=== PATIENT | female | born 1975 | race Caucasian/White ===

== ENCOUNTER 2025-03-30 10:11 | Emergency (ER) | payer OTHER, SELFPAY ==
--- NOTE | ~2025-03-30 | CT_ITS ---
EXAMINATION: CT abdomen pelvis w con DATE: 03/30/2025 11:18 INDICATION: Right lower quadrant abdominal pain TECHNIQUE: Computed tomography (CT) of the abdomen and pelvis was performed with 100 mL Omnipaque-350 intravenous contrast. Automated exposure control and iterative reconstruction technique were employed. The dose-length product was 663.75 mGy-cm. COMPARISON: None FINDINGS: Mild discoid atelectasis at the lingula. Heart size is normal. No pericardial or pleural effusion. Postoperative change of prior gastric bypass procedure. Liver, gallbladder, spleen, pancreas, bilateral adrenal glands and kidneys are normal. There is prominent inflammatory stranding surrounding the fluid-filled appendix which is dilated to 1.4 cm consistent with acute appendicitis. Remainder the bowels are normal with no obstruction. Partially decompressed bladder, anteverted uterus and bilateral adnexa are unremarkable. No abscess or free intraperitoneal gas or fluid. No pathologically enlarged abdominal or pelvic lymphadenopathy. Moderate lower thoracic, mild to moderate lumbosacral and mild lumbar spondylosis. IMPRESSION: 1. Radiographic uncomplicated acute appendicitis. Findings were discussed with Kyler Yan, the nurse caring for the patient, at 11:52 AM. Reviewed, dictated and finalized at location A. [facility]
--- NOTE | 2025-03-30 10:15 | ED.ABDPAIN ---
HPI - Abdominal Pain General Chief Complaint: Abdominal Pain Stated Complaint: abd pain Time Seen by Provider: 03/30/25 10:15 Source: patient and family Mode of arrival: ambulatory Limitations: no limitations History of Present Illness HPI narrative: 50 years old presents with right lower quadrant pain associated with nausea vomiting and dry heaves started early this morning, no radiation, dull aching, no aggravating or relieving factors, patient denies any fever or chills diarrhea or constipation. History of gastric bypass, kidney stone. Patient does not smoke or use drugs, drink alcohol occasionally. Came from home with her by private car. Related Data Home Medications ?Medication ?Instructions ?Recorded ?Confirmed ?Last Taken ?Type metformin 500 mg tablet,extended 500 mg PO DAILY 03/30/25 Unknown History release 24 hr valacyclovir 1 gram tablet 1,000 mg PO DAILY 03/30/25 Unknown History Allergies Allergy/AdvReac Type Severity Reaction Status Date / Time ciprofloxacin (From Cipro) Allergy Intermediate Diarrhea Verified 03/30/25 10:51 empagliflozin (From Allergy Mild yeast Verified 03/30/25 10:51 Jardiance) Review of Systems Review of Systems: All systems reviewed & are unremarkable except as noted in HPI and below Exam Narrative: General appearance: Well-developed, well-nourished Skin: Normal color Head: Normocephalic, nontraumatic Eyes: Clear conjunctiva ENT: Oropharynx normal, ears normal, nose normal Neck: Supple, nontender Chest and respiratory: Airway patent, no respiratory distress, no accessory muscle use Heart: Regular rate/rhythm Abdomen: Soft, nontender, no organomegaly, quiet bowel sounds Vascular: Normal peripheral pulses, normal capillary refill. Musculoskeletal: Normal range of motion, nontender back Neurologic: Alert and oriented ?3, [employer] is normal as tested, no gross motor deficit Course Consultations Consultation #1: DR ALONSO Date: 03/30/25 Vital Signs Vital signs: Vital Signs Temperature 36.4 C 03/30/25 10:17 Pulse Rate 77 03/30/25 10:17 Respiratory Rate 19 03/30/25 10:17 Blood Pressure 135/81 03/30/25 10:17 Pulse Oximetry 98 03/30/25 10:17 Oxygen Delivery Room Air 03/30/25 10:17 Temperature 36.7 C 03/30/25 12:01 Pulse Rate 67 03/30/25 12:01 Respiratory Rate 16 03/30/25 12:01 Blood Pressure 129/66 03/30/25 12:01 Pulse Oximetry 95 03/30/25 12:01 Oxygen Delivery Room Air 03/30/25 12:01 MDM - Abdominal Pain MDM Narrative Medical decision making narrative: Right lower quadrant pain with nausea and vomiting, on dry heave Vital signs are stable Physical examination consistent with pain at the right abdomen with slight guarding, no rebound Differential diagnosis include appendicitis cholecystitis kidney stone constipation colitis diverticulitis urinary tract infection Blood workup today includes CBC CMP lipase lactic acid showed WBC 17.5 otherwise within normal limit Urinalysis showed no acute abnormalities CT abdomen and pelvis with IV contrast showed acute appendicitis Transferred to [facility], accepted by Dr. Alonso IN THE ED PATIENT RECEIVED NORMAL SALINE WIDE OPEN 1 L THEN 250 ML/HOUR, DILAUDID 0.5 MG IV ONCE, ZOFRAN 4 MG IV ONCE, ZOSYN 3.375 IV ONCE Differential Diagnosis Differential diagnosis: Likely other (As above) Medical Records Attestation: I reviewed the patient's medical records. Lab Data Attestation: I reviewed the patient's lab results. 03/30/25 10:31 03/30/25 10:31 Labs: Lab Results 03/30/25 03/30/25 Range/Units 10:31 10:55 WBC 17.5 H (4.8-10.8) K/mm3 RBC 4.93 (4.20-5.40) M/mm3 Hgb 14.7 (12.0-15.0) g/dL Hct 45.3 (35.0-49.0) % MCV 91.9 (78.0-102.0) fL MCH 29.8 (27.0-31.0) pg MCHC 32.5 (32-36) g/dL RDW 12.4 (11.6-14.4) % Plt Count 319 (150-420) K/mm3 MPV 10.1 (9.2-11.8) fl Immature Gran % (Auto) 0.6 H (0.0-0.0) % Neut % (Auto) 83.4 H (50.0-70.0) % Lymph % (Auto) 9.2 L (18.0-42.0) % [place] % (Auto) 5.8 (2.0-11.0) % Eos % (Auto) 0.5 L (1.0-6.0) % Baso % (Auto) 0.5 (0.0-1.0) % Lymph # (Auto) 1.61 (1.10-4.50) K/mm3 [place] # (Auto) 1.01 H (0.10-0.90) K/mm3 Eos # (Auto) 0.09 (0.02-0.50) K/mm3 Baso # (Auto) 0.08 (0.00-0.10) K/mm3 Abs Immat Gran (auto) 0.10 H (0.00-0.00) K/mm3 Absolute Neuts (auto) 14.56 H (1.70-7.20) K/mm3 Absolute Nucleated RBC 0.00 (0.00-0.00) K/mm3 Nucleated RBC % 0.0 (0-0.0) % Sodium 142 (137-145) mmol/L Potassium 4.0 (3.4-5.0) mmol/L Chloride 104 (98-107) mmol/L Carbon Dioxide 28 (22-30) mmol/L Anion Gap 10 (4-12) mmol/L BUN 12 (7-17) mg/dL Creatinine 0.63 L (0.7-1.0) mg/dL Estim Creat Clear Calc 97 ml/min Estimated GFR > 60 (59 - ) Glucose 154 H (65-110) mg/dL Calculated Osmolality 296 H (285-295) mOsm/kg Lactic Acid 1.8 (0.7-2.0) mmol/L Calcium 8.8 (8.4-10.2) mg/dL Total Bilirubin 0.4 (0.2-1.3) mg/dL AST 35 (14-36) U/L ALT 28 (6-35) U/L Alkaline Phosphatase 95 (38-126) U/L Total Protein 7.7 (6.3-8.2) g/dL Albumin 4.5 (3.5-5.1) g/dL Lipase 93 (23-300) U/L Urine Color Light yellow (Yellow) Urine Appearance Clear (Clear) Urine pH 7.0 (5.0-8.0) Ur Specific [place] 1.010 (1.010-1.020) Urine Protein Trace H (Negative) Urine Glucose (UA) Negative (Negative) Urine Ketones Negative (Negative) Ur Blood (Man) Negative (Negative) Urine Nitrate Negative (Negative) Urine Bilirubin Negative (Negative) Urine Urobilinogen 0.2 (0.2-1.0) mg/dL Leukocyte Esterase Rfl 1+ H (Negative) SADI/UL Urine RBC 0-2 (0-2) /hpf Urine WBC 10-15 H (0-3) /hpf Imaging Data Radiologist's impression: ITS Impressions Abdomen/Pelvis CT 03/30/25 11:38 IMPRESSION: 1. Radiographic uncomplicated acute appendicitis. Findings were discussed with Kyler Yan, the nurse caring for the patient, at 11:52 AM. Critical Care Time Critical Care Time Critical Care Time: No Discharge Plan Discharge Clinical Impression: Acute appendicitis Patient Disposition: Acute Care Hospital [facility] Condition: Stable Additional Instructions: Transferred to [facility] Patient Language: Belarusian Prescriptions: No Action valacyclovir 1 gram tablet 1,000 mg PO DAILY metformin 500 mg tablet extended release 24 hr 500 mg PO DAILY Follow-up/Referrals: UNKNOWN,DOCTOR [Non-Staff]
[2025-03-30 10:17] VITALS: BP 135/81; PULSE 77; RESP 19; TEMP 36.4; O2SAT 98
[2025-03-30 10:35] LABS: Hematocrit 45.3 % (35.0-49.0); Hemoglobin 14.7 g/dL (12.0-15.0); Immature Granulocyte Percent A 0.6 % (0.0-0.0); Lymphocytes Absolute Auto 1.61 K/mm3 (1.10-4.50); Mean Corpuscular HGB Conc 32.5 g/dL (32-36); Mean Corpuscular Hemoglobin 29.8 pg (27.0-31.0); Mean Corpuscular Volume 91.9 fL (78.0-102.0); Nucleated Red Blood Cells Absolute Auto 0.00 K/mm3 (0.00-0.00); Nucleated Red Blood Cells Perc 0.0 % (0-0.0); Platelet Count Result 319 K/mm3 (150-420); Red Blood Count 4.93 M/mm3 (4.20-5.40); White Blood Count 17.5 K/mm3 (4.8-10.8)
[2025-03-30] MEDS: Please add drug allergy info to patient profile. 1 EACH XX (10:43)
[2025-03-30] MEDS: SODIUM CHLORIDE 0.9% IV 1,000 ML 999 ML IV CONT (10:44)
[2025-03-30] MEDS: TAMSULOSIN HCL 0.4 MG CAPSULE PO (10:45)
[2025-03-30] MEDS: HYDROmorphone HCL INJ (*CRX) 2 MG/ML VIAL 0.5 MG IV PUSH (10:45)
[2025-03-30] MEDS: ONDANSETRON INJ 4 MG/2 ML VIAL 8 MG IV PUSH (10:46)
[2025-03-30 10:47] LABS: Alanine Aminotransferase 28 U/L (6-35); Albumin Level 4.5 g/dL (3.5-5.1); Alkaline Phosphatase 95 U/L (38-126); Anion Gap 10 mmol/L (4-12); Aspartate Amino Transferase 35 U/L (14-36); Bilirubin,Total 0.4 mg/dL (0.2-1.3); Blood Urea Nitrogen 12 mg/dL (7-17); Calcium 8.8 mg/dL (8.4-10.2); Carbon Dioxide 28 mmol/L (22-30); Chloride 104 mmol/L (98-107); Estimated CRCL calculation 97 ml/min; Estimated Glomerular Filt Rate > 60; Glucose 154 mg/dL (65-110); Lipase 93 U/L (23-300); Osmolality Calculated 296 mOsm/kg (285-295); Potassium 4.0 mmol/L (3.4-5.0); Sodium 142 mmol/L (137-145); Total Protein 7.7 g/dL (6.3-8.2)
[2025-03-30 11:09] LABS: Add Urine Microscopic? YES; Appearance Urine Clear (Clear); Glucose Urine UA Negative (Negative); Leukocyte Esterase Ur 1+ LEU/UL (Negative); Nitrate Urine Negative (Negative); Specific Grav Ur 1.010 (1.010-1.020)
--- OUTSIDE RECORDS SUMMARY | 2025-03-30 11:51 | XMS_ITS | Clinical Summary ---
Author Organization [facility] Address [address] [place] [address] Phone Care Team Providers Care Lead Business Analyst Name Role Phone Provider, None Primary Care Provider Unavailabl e Allergies Active Allergy Reactions Criticality Noted Date Comments Ciprofloxacin Other (see Comments) 10/08/2014 Empagliflozin Rash 11/12/2024 Recurrent infections Guaifenesin Hives,Other (see Comments) 10/08/2014 Hypertension Medications valACYclovir (VALTREX) 1 GM Tablet Take 500 mg by mouth daily. 05/29/2022 Active rizatriptan (MAXALT-TAG PRESS OPERATOR) 10 MG TABLET DISPERSIBLE Take 10 mg by mouth once as needed for Migraine. Active calcium carbonate (Tums) 500 MG Chewable Tablet Take 2 Tablets by mouth daily. Active Multiple Vitamins-Calcium (Essential One Daily Multivit) Tablet Take by mouth daily. Active Social History Tobacco Use Types Packs/Day Years Used Date Smoking Tobacco: Never Smokeless Tobacco: Never Tobacco Cessation:Counseling Given: Not Answered Comments No Sex and Gender Information Value Date Recorded Sex Assigned at Not on file Legal Sex Female 2:14 PM CDT Gender Identity Not on file Sexual Orientation Not on file Last Filed Vital Signs Vital Sign Reading Time Taken Comments Blood Pressure 144/86 11/12/2024 1:21 PM CDT Pulse - - Temperature - - Respiratory Rate - - Oxygen Saturation - - Inhaled Oxygen Concentration - - Weight 93.2 kg (205 lb 6.4 oz) 11/12/2024 1:21 P M CDT Height 158.8 cm (5' 2.5) 11/12/2024 1:21 PM CDT Body Mass Index 36.97 11/12/2024 1:21 PM CDT Plan of Treatment Upcoming Encounters Date Type Department Care Team (Late st Contact Info) Description 12/08/2025 2:30 PM CDT Office Visit [address] [place] [address] Khai Fuentes MD [address] [place] [address] [place] [address] Health Maintenance Due Date Last Done Comments Hepatitis C Virus (HCV) Screening 1975 TdaP Immunization 1975 Hepatitis B Immunization (1 of 3 - 19+ 3-dose series) 1994 Cologuard 2020 Colonoscopy 2020 Colorectal Cancer Screening 2020 Immunochemical Fecal Occult Blood 2020 Influenza Immunization (#1) 2025 SARS-COV-2 Immunization (1 - season) 2025 Pneumococcal Immunization (50+ years) (1 of 1 - PCV) 2025 Zoster Immunization (1 of 2) 2025 Mammogram 11/12/2025 11/12/2024, 10/06, 10/24/2022, Additional history exists Pap Smear 10/30/2026 10/31/2023 Cervical Cancer Screening (CCS) 11/12/2029 HPV/Cotest 11/12/2029 11/12/2024 Respiratory Syncytial Virus (RSV) Immunization (Adult) (1 - 1-dose 75+ series) 2050 Discussion re Starting/Frequency of Mammograms Discontinued 11/12/2024, 10/31/2023, 10/24/2022, Additional history exists Human Papillomavirus (HPV) Immunization Aged Out No longer eligible based on patient's age to complete this topic Meningococcal Immunization (ACWY) Aged Out No longer eligible based on patient's age to complete this topic Rotavirus Immunization Aged Out No lo nger eligible based on patient's age to complete this topic Procedures Procedure Name Priority Date/Time Associated Diagnosis Comments SOHAN SCREENING BILATERAL DIGITAL W CAD W DALTON Routine 11/12/2024 3:05 PM CDT Visit for screening mammogram THINPREP TIS AND HPV MRNA E6/E7, [facility] [id number] Routine 11/12/2024 2:19 PM CDT Encounter for gynecological examination (general) (routine) with abnormal findings THIN PREP PAP SMEAR,EXT UPH,[id number] Routine 10/31/2023 12:00 AM CDT from Last 3 Months or Most Recently Relevant to Health Maintenance Results * SOHAN SCREENING BILATERAL DIGITAL W CAD W DALTON (11/12/2024 3:05 PM CDT) Anatomical Region Laterality Modality breast Bilateral Mammography 11/13/2024 10:2 3 AM CDT Impressions 11/13/2024 10:25 AM CDT IMPRESSION: BIRADS 2 - Benign findings. Recommend continued annual screening mammography. On the basis of the Tyrer-Cuzick risk model, this patient has a life time risk of breast cancer of 11.6%. Patient is considered to have a low lifetime risk of developing breast cancer. <15% Narrative 11/13/2024 10:25 AM CDT HISTORY: Encounter for screening mammogram for malignant neoplasm of breast TECHNIQUE: Bilateral screening tomosynthesis mammography. Films were reviewed by CAD. COMPARISON: Prior mammograms FINDINGS: There are scattered areas of fibroglandular density. No suspicious mass, calcifications, architectural distortion or asymmetry is present. Benign breast calcifications are present bilaterally. Procedure Note Jean Claude Angelo, DO - 11/13/2024 HISTORY: Encounter for screening mammogram for malignant neoplasm ofbreast TECHNIQUE: Bilateral screening tomosynthesis mammography. Films werereviewed by CAD. COMPARISON: Prior mammograms FINDINGS: There are scattered areas of fibroglandular density. Nosuspicious mass, calcifications, architectural distortion or asymmetry is present.Benign breast calcifications are present bilaterally. IMPRESSION: BIRADS 2 - Benign findings. Recommend continued annual screening mammography. On the basis of the Tyrer-Cuzick risk model, this patient has a life timerisk of breast cancer of 11.6%. Patient is considered to have a low lifetime risk of developing breastcancer. <15% Khai Fuentes MD IMG MAMMO ORDERABLES Final Res ult * THINPREP TIS AND HPV MRNA E6/E7, [facility] [id number] (11/12/2024 2:19 PM CDT) 93532, REPORT STATUS, [facility] DNR 11/20/2024 9:50 AM CDT [facility] 10874, CLINICAL INFORMATION, [facility] SEE COMMENT 11/20/2024 9:50 AM CDT [facility] Comment: Intrauterine contraceptive device ABLATON 86946, LMP, [facility] SEE COMMENT 2024 9:50 AM CDT [facility] Comment:[id number], PREV. PAP, [facility] SEE COMMENT 11/20/2024 9:50 AM CDT [facility] Comment:[id number], PREV. BX, [facility] SEE COMMENT 11/20/2024 9:50 AM CDT [facility] Comment:[id number], SOURCE, [facility] SEE COMMENT 11/20/2024 9:50 AM CDT [facility] Comment:Vagina, Cervix, Endo cervix 18105, STATEMENT OF ADEQUACY, [facility] SEE COMMENT 11/20/2024 9:50 AM CDT [facility] Comment: Satisfactory for evaluation. Endocervical/transformation zone component present. 02245, GENERAL CATEGORIZATION, [facility] DNR 11/20/2024 9:50 AM CDT [facility] 82310, INTERPRETATION/RES ULT, [facility] SEE COMMENT 11/20/2024 9:50 AM CDT [facility] Comment: Cytology Results: Negative for intraepithelial lesion or malignancy. 34085, INFECTION, [facility] DNR 11/20/2024 9:50 AM CDT [facility] 09709, COMMENT, [facility] SEE COMMENT 11/20/2024 9:50 AM CDT [facility] Comment: This Pap test has been evaluated with the ThinPrep(R) Imaging System. 01705, FIRE PATROLLER, [facility] SEE COMMENT 11/20/2024 9:50 AM CDT [facility] Comment: ABC, CT(ASCP) CT Screening Location: [place] [address] [place] [address] CLIA: [id number] Slide preparation performed at: [facility], [address] [place] [address], [address] CLIA: [id number], REVIEW FIRE PATROLLER, MIRELLA SEE COMMENT 11/20/2024 9:50 AM CDT [facility] Comment: BKA, CT(ASCP) CT Screening Location: [address] [place] [address] CLIA: [id number] Slide preparation performed at: [facility], [address] [place] [address], [address] CLIA: [id number], PATHOLOGIST, MIRELLA DNR 11/20/2024 9:50 AM CDT [facility] 66349, ALWAYS MESSAGE, MIRELLA SEE COMMENT 11/20/2024 9:50 AM CDT [facility] Comment: EXPLANATORY NOTE: The Pap is a screening test for cervical cancer. It is not a diagnostic test and is subject to false negative and false positive results. It is most reliable when a satisfactory sample, regularly obtained, is submitted with relevant clinical findings and history, and when the Pap result is evaluated along with historic and current clinical information. 76057, HPV MRNA E6/E7, [facility] Not Detected Not Detected 11/20/2024 9:50 AM CDT [facility] Comment: Methodology: Net Developer Software Engineer C-Mediated Amplification This assay detects E6/E7 viral messenger RNA (mRNA) from 14 high-risk HPV types (16,18,31,33,35,39,45,51,52,56,58,59,66,68). Cervical sources are required for HPV testing. If a vaginal source from a patient who has had a total hysterectomy with removal of cervix was submitted, please contact the testing laboratory for alternative testing options. For additional information, please refer to http://education.Cycle Money/faq/BRW128z4 (This link if provided for information/ educational purposes only.) Other Non-Phlebotomy Collection / Unknown 11/12/2024 2:19 PM CDT 11/12/2024 2:19 PM CDT Narrative [facility] - 11/20/2024 9:50 AM CDT Performing Organization Information: [place] [address] [place] [address] Jay Jay Ann [facility] [address] [place], [place] [address] Josefa [facility] Khai Fuentes MD LAB SEND OUTS Final Result [facility] [place] [address] [address] [facility] [place] [address], [place] [phone] * THIN PREP PAP SMEAR,EXT UP,[id number] (10/31/2023 12:00 AM CDT) Historical Provider PATHOLOGY/CYTOLOGY ORDERA BLES Final Result from Last 3 Months or Most Recently Relevant to Health Maintenance Insurance [employer] SO Care Teams Lead Business Analyst Relationship Specialty Start Date End Date Provider, None [place] PCP - General 10/23/24
[2025-03-30 12:01] VITALS: BP 129/66; PULSE 67; RESP 16; TEMP 36.7; O2SAT 95
[2025-03-30] MEDS: PIPERACILLIN/TAZOBACTAM SOD 3.375 GM in SODIUM CHLORIDE 0.9% IV 50 ML 100 ML IVPB (12:03)
--- NOTE | 2025-03-30 12:17 | PC.NURSE ---
REPORT FROM RADIOLOGIST DR ELGIN MAURER PT HAS ACUTE appendicitis
--- OUTSIDE RECORDS SUMMARY | 2025-03-30 12:43 | XMS_ITS | Clinical Summary ---
Author Organization [facility] Address [address] [place] [address] Phone Care Team Providers Care Calculator Operator Name Role Phone Provider, None Primary Care Provider Unavailabl e Allergies Active Allergy Reactions Criticality Noted Date Comments Ciprofloxacin Other (see Comments) 10/08/2014 Empagliflozin Rash 11/12/2024 Recurrent infections Guaifenesin Hives,Other (see Comments) 10/08/2014 Hypertension Medications valACYclovir (VALTREX) 1 GM Tablet Take 500 mg by mouth daily. 05/29/2022 Active rizatriptan (MAXALT-HASH SLINGER) 10 MG TABLET DISPERSIBLE Take 10 mg [...] Description 12/08/2025 2:30 PM CDT Office Visit [address] [place] [address] Khai Fuentes MD [address] [place] [address] [place] [address] Health Maintenance Due Date [...] THINPREP TIS AND HPV MRNA E6/E7, [facility] [id number] Routine 11/12/2024 2:19 PM CDT Encounter for gynecological examination (general) (routine) with abnormal findings THIN PREP PAP SMEAR,EXT UPH,[id number] Routine 10/31/2023 12:00 AM CDT from Last [...] THINPREP TIS AND HPV MRNA E6/E7, [facility] 79918 (11/12/2024 2:19 PM CDT) 55470, REPORT STATUS, [facility] DNR 11/20/2024 9:50 AM CDT [facility] 42768, CLINICAL INFORMATION, [facility] SEE COMMENT 11/20/2024 9:50 AM CDT [facility] Comment: Intrauterine contraceptive device ABLATON 97075, LMP, [facility] SEE COMMENT 2024 9:50 AM CDT [facility] Comment:[id number], PREV. PAP, [facility] SEE COMMENT 11/20/2024 9:50 AM CDT [facility] Comment:[id number], PREV. BX, [facility] SEE COMMENT 11/20/2024 9:50 AM CDT [facility] Comment:[id number], SOURCE, [facility] SEE COMMENT 11/20/2024 9:50 AM CDT [facility] Comment:Vagina, Cervix, Endo cervix 88160, STATEMENT OF ADEQUACY, [facility] SEE COMMENT 11/20/2024 9:50 AM CDT [facility] Comment: Satisfactory for evaluation. Endocervical/transformation zone component present. 23392, GENERAL CATEGORIZATION, [facility] DNR 11/20/2024 9:50 AM CDT [facility] 94422, INTERPRETATION/RES ULT, [facility] SEE COMMENT 11/20/2024 9:50 AM CDT [facility] Comment: Cytology Results: Negative for intraepithelial lesion or malignancy. 04067, INFECTION, [facility] DNR 11/20/2024 9:50 AM CDT [facility] 83872, COMMENT, [facility] SEE COMMENT 11/20/2024 9:50 AM CDT [facility] Comment: This Pap test has been evaluated with the ThinPrep(R) Imaging System. 51698, REHABILITATION SERVICES DIRECTOR, [facility] SEE COMMENT 11/20/2024 9:50 AM CDT [facility] Comment: ABC, CT(ASCP) CT Screening Location: [place] [address] [place] [address] CLIA: [id number] Slide preparation performed at: [facility], [address] [place] [address], [address] CLIA: [id number], REVIEW REHABILITATION SERVICES DIRECTOR, MIRELLA SEE COMMENT 11/20/2024 9:50 AM CDT [facility] Comment: BKA, CT(ASCP) CT Screening Location: [address] [place] [address] CLIA: [id number] Slide preparation performed at: [facility], [address] [place] [address], [address] CLIA: [id number], PATHOLOGIST, MIRELLA DNR 11/20/2024 9:50 AM CDT [facility] 72[address], ALWAYS MESSAGE, MIRELLA SEE COMMENT 11/20/2024 9:50 AM CDT [facility] Comment: EXPLANATORY NOTE: The Pap is a screening test for cervical cancer. It is not a diagnostic test and is subject to false negative and false positive results. It is most reliable when a satisfactory sample, regularly obtained, is submitted with relevant clinical findings and history, and when the Pap result is evaluated along with historic and current clinical information. 77758, HPV MRNA E6/E7, [facility] Not Detected Not Detected 11/20/2024 9:50 AM CDT [facility] Comment: Methodology: Service Counter Cashier-Mediated Amplification This assay detects E6/E7 viral messenger RNA (mRNA) from 14 high-risk HPV types (16,18,31,33,35,39,45,51,52,56,58,59,66,68). Cervical sources are required for HPV testing. If a vaginal source from a patient who has had a total hysterectomy with removal of cervix was submitted, please contact the testing laboratory for alternative testing options. For additional information, please refer to http://education.atHomestars/faq/WVM297f8 (This link if provided for information/ educational purposes only.) Other Non-Phlebotomy Collection / Unknown 11/12/2024 2:19 PM CDT 11/12/2024 2:19 PM CDT Narrative [facility] - 11/20/2024 9:50 AM CDT Performing Organization Information: [place] [facility] [place] [address] Jay Jay Ann [email or web address] [address] [place], [place] [address] [place] [facility] Khai Fuentes MD LAB SEND OUTS Final Result [facility] [place] [address] [address] [facility] [place] [address], [place] [phone] * THIN PREP PAP SMEAR,EXT UP,[id number] (10/31/2023 12:00 AM CDT) Historical Provider PATHOLOGY/CYTOLOGY ORDERA BLES Final Result from Last 3 Months or Most Recently Relevant to Health Maintenance Insurance [employer] SO Care Teams Calculator Operator Relationship Specialty Start Date End Date Provider, None [place] PCP - General 10/23/24
[2025-03-30 13:14] VITALS: BP 125/62; PULSE 66; RESP 17; TEMP 36.6; O2SAT 97
[2025-03-30] MEDS: SODIUM CHLORIDE 0.9% IV 1,000 ML 250 ML IV CONT (13:16)
== END 2025-03-30 13:41 | disposition short-term general hospital (02) ==
PROVIDERS: Emergency Provider Emergency Medicine; Referring Provider Internal Medicine
DX: K35.80 Unspecified acute appendicitis (principal); Z79.84 Long term (current) use of oral hypoglycemic drugs; Z79.899 Other long term (current) drug therapy
CPT/HCPCS: 36415; 74177; 80053; 81001; 83605; 83690; 85025; 96361; 96365; 96375; 99285; A9270; J1171; J2405; J2543; J7030; Q9967

== ENCOUNTER 2025-03-30 14:27 | Day surgery (SDC) | payer OTHER, SELFPAY ==
[2025-03-30] VITALS (9 sets, daily range): BP systolic 108–133; BP diastolic 53–68; PULSE 75–87; RESP 10–19; TEMP 36.4–36.6; O2SAT 93–100; BMI 36.6
--- NOTE | 2025-03-30 14:50 | PM.IMHP ---
H&P: HPI History of Present Illness Date/Time: 03/30/25 14:50 Chief Complaint: RLQ abdominal pain Narrative: This is a 50-year-old woman with history of laparoscopic gastric bypass in 2020, who presented to [place] [facility] with RLQ abdominal pain x less than 12 hours. She woke up this morning around 5 am and noticed RLQ abdominal pain. She has never had pain like this in the past. She developed associated nausea and vomiting. Workup in the ED revealed leukocytosis with WBC count at 17,[address] evidence of uncomplicated acute appendicitis. She was given IV fluids and IV Zosyn in the ER. She was then transferred directly to [facility] for surgical evaluation and management. Review of Systems Review of Systems: All systems reviewed & are unremarkable except as noted in HPI and below PMFSH Past Medical History Medical History History of type 2 diabetes mellitus Diagnosed prior to her gastric bypass and this resolved after her weight loss following surgery. No longer on any medication for diabetes. Surgical History Surgical History History of abdominoplasty History of breast lift History of gastric bypass Laparoscopic gastric bypass in [address] [place] with 120 lb weight loss. History of removal of laparoscopic gastric banding device History of laparoscopic adjustable gastric banding Eventually removed during gastric bypass Meds Home Medications and Allergies Home Medications ?Medication ?Instructions ?Recorded ?Confirmed ?Type metformin 500 mg tablet,extended 500 mg PO DAILY 03/30/25 History release 24 hr valacyclovir 1 gram tablet 1,000 mg PO DAILY 03/30/25 History Allergies Allergy/AdvReac Type Severity Reaction Status Date / Time ciprofloxacin (From Cipro) Allergy Intermediate Diarrhea Verified 03/30/25 10:51 empagliflozin (From Allergy Mild yeast Verified 03/30/25 10:51 Jardiance) Exam Const: General: comfortable and no acute distress Nutritional Appearance: average body habitus Orientation/consciousness: patient oriented x3 HENMT: Head: normocephalic and atraumatic Ears: hearing grossly normal bilaterally Mouth: Yes moist mucous membranes Eyes: General: appearance normal, both eyes and all related structures Pupils: Equal, round and reactive pupils present Neck: Neck: normal visual inspection and full ROM Resp: Effort & Inspection: no respiratory distress Auscultation: clear to auscultation bilaterally Cardio: Rate: regular rate Rhythm: regular rhythm Peripheral pulses: Peripheral pulses 2+ throughout GI: Inspection: non-distended and scar (large suprapubic horizontal scar, small port site scars) GI Palp: Yes Soft to palpation, Yes Tenderness to palpation present (GI) (RLQ), No Guarding due to palpation present (GI), Yes No hepatosplenomegaly present, No Hernia present and No Rebound tenderness present Auscultation: normal bowel sounds Rectal Exam: deferred Skin: General skin exam: normal color Neuro: General: moves all extremities and no focal motor deficits Speech: normal speech Motor exam (neuro): 5/5 motor strength present throughout Extrem: General: normal to inspection and no edema Psych: Mental Status: mental status grossly normal Attitude: cooperative Insight: Good insight present (Psych) Judgement: Good judgement present (Psych) H&P: Results Imaging CT scan - abdomen: Radiologist's impression: EXAMINATION: CT abdomen pelvis w con DATE: 03/30/2025 11:18 INDICATION: Right lower quadrant abdominal pain TECHNIQUE: Computed tomography (CT) of the abdomen and pelvis was performed with 100 mL Omnipaque-350 intravenous contrast. Automated exposure control and iterative reconstruction technique were employed. The dose-length product was 663.75 mGy-cm. COMPARISON: None FINDINGS: Mild discoid atelectasis at the lingula. Heart size is normal. No pericardial or pleural effusion. Postoperative change of prior gastric bypass procedure. Liver, gallbladder, spleen, pancreas, bilateral adrenal glands and kidneys are normal. There is prominent inflammatory stranding surrounding the fluid-filled appendix which is dilated to 1.4 cm consistent with acute appendicitis. Remainder the bowels are normal with no obstruction. Partially decompressed bladder, anteverted uterus and bilateral adnexa are unremarkable. No abscess or free intraperitoneal gas or fluid. No pathologically enlarged abdominal or pelvic lymphadenopathy. Moderate lower thoracic, mild to moderate lumbosacral and mild lumbar spondylosis. IMPRESSION: 1. Radiographic uncomplicated acute appendicitis. Findings were discussed with Kyler Yan, the nurse caring for the patient, at 11:52 AM. Assessment and Plan Assessment and plan (1) Acute appendicitis: Code(s): K35.80 - Unspecified acute appendicitis Status: Acute Assessment and Plan: Patient transferred from [place] with CT evidence of acute appendicitis. No perforation or abscess evident on CT. We discussed both nonoperative treatment with IV antibiotics/monitoring versus proceeding with surgery. We discussed the risks of recurrence or treatment failure with the option of antibiotic therapy. I also discussed the details of a laparoscopic appendectomy, possible open, under general anesthesia that would be done by Dr. Alonso. Description of the procedure, risks, benefits, alternatives, and expected recovery were discussed. She agrees to proceed with surgery. She has been added to the surgery schedule for today and received a dose of IV Zosyn in the ER at [place]. Continue IV Fluids and keep NPO for surgery. Plan I have discussed the patient's case, recommendations, and treatment plan with Dr. Alonso. Quality VTE Prophylaxis VTE prophylaxis: mechanical ordered (during surgery)
--- NOTE | 2025-03-30 15:14 | WPDHPUPDATE1 ---
History and Physical Update Update Date/Time: 03/30/25 15:14 History and Physical has been reviewed, including an updated exam of the patient. There are NO changes in the patient's condition. Risks, benefits, and alternatives have been discussed and questions answered. Patient agrees to proceed with procedure.
[2025-03-30] MEDS: SCOPOLAMINE 1 MG PATCH 1 PATCH TRANSDERM (15:15)
[2025-03-30] MEDS: LACTATED RINGERS 1,000 ML 30 ML IV CONT (15:15)
--- NOTE | 2025-03-30 15:19 | WPDANESEPPF ---
Anes - Initial Pre Proc Eval Procedure: Operation Date: 03/30/25 15:30 Proposed Procedures p Laparoscopic Appendectomy - Rosy Alonso MD Date/Time: 03/30/25 15:19 Surgeon: Rosy Alonso MD Pre Op Diagnosis: acute appendicitis Patient Data Age: 50 Gender: F Height: Weight: Allergies Allergy/AdvReac Type Severity Reaction Status Date / Time ciprofloxacin (From Cipro) Allergy Intermediate Diarrhea Verified 03/30/25 10:51 empagliflozin (From Allergy Mild yeast Verified 03/30/25 10:51 Jardiance) Home Medications ?Medication ?Instructions ?Recorded ?Confirmed ?Type Tums 03/30/25 History multivitamin 1 tablet PO DAILY 03/30/25 03/30/25 History valacyclovir 1 gram tablet 1,000 mg PO DAILY 03/30/25 History Patient hx anesthesia problems: none Family hx anesthesia problems: none Results Review: All pre-operative results and documents have been reviewed as part of the pre-operative evaluation. [facility] Past Medical History Medical History History of type 2 diabetes mellitus Diagnosed prior to her gastric bypass and this resolved after her weight loss following surgery. No longer on any medication for diabetes. Surgical History Surgical History History of abdominoplasty History of breast lift History of gastric bypass Laparoscopic gastric bypass in 2020 in [place] with 120 lb weight loss. History of removal of laparoscopic gastric banding device History of laparoscopic adjustable gastric banding Eventually removed during gastric bypass Anes - Eval Final PreProcedure Day of Procedure 03/30/25 15:19 Patient weight: overweight Heart: regular rate and rhythm Lungs: clear to auscultation Airway: Mallampati scale class II Neurological: alert and oriented Last oral intake: >/= 8 hours ASA classification: II Emergent: yes Anesthetic plan: proceed Anesthesia type and monitoring: general ETT and standard monitoring Results Review: All pre-operative results and documents have been reviewed as part of the pre-operative evaluation. Informed Consent: The patient's anesthetic plan and its attendant risks and benefits were discussed with the patient/family/POA. Questions were solicited and answers provided to the satisfaction of the patient/family/POA.
[2025-03-30] MEDS: BUPIVACAINE/EPINEPHRINE 0.5% 30 ML VIAL INFILTRATE (15:22)
--- NOTE | 2025-03-30 16:13 | S_PTH ---
PATIENT: Sayra Block LOC: [facility] U#:[id number] AGE/SX: 50/F ROOM: RE03/30/[address]: Rosy Alonso MD : 1975 BED: DIS: 03/30/2025 SPEC #: [id number] RECD: 03/31/25 07:43 STATUS: ANDREW RENasima #: [id number] PAIGE: 03/30/25 16:[address]: Rosy Alonso DEPT: [facility] Surgical RECD BY: Saleem Zarate ENTERED: 03/31/25 07:44 SP TYPE: Surgical OTHR DR: DIRECTOR OF PREMIUM SEAT SALES PHYSICIAN Tissues: A - Appendix Procedures: Hematoxylin and Eosin Stain Gross and Microscopic Level 3
--- NOTE | 2025-03-30 16:31 | P.OP_ITS ---
Procedure Note - Detailed Date of Procedure 03/30/25 Pre-op Diagnosis acute appendicitis Post-op Diagnosis Same Procedure Performed laparoscopic appendectomy Surgeon Rosy Alonso MD Anesthesia General Indications 50-year-old female presenting to an outside emergency department complaining of right lower quadrant abdominal pain. Workup, including imaging, is significant for acute appendicitis. Patient transferred here for urgent appendectomy. Findings acute appendicitis no evidence of perforation Description of Procedure The patient was taken to the operating room and placed in the supine position. After adequate induction of general anesthesia, the patient was prepped and draped in the normal sterile fashion. A time-out was then done to verify the patient's identity, as well as the procedure being performed. I began by making a 5 mm incision in the infraumbilical region, through this a Veress needle was placed in the peritoneal cavity. CO2 gas was then insufflated and after adequate pneumoperitoneum was achieved the Veress needle was removed. Then placed a 5 mm Optiview trocar under direct visualization into the peritoneal cavity. I then insufflated through this trocar site and the endoscope was placed into the trocar. Under direct visualization, placed 2 further 5 mm suprapubic port as well as an additional 12 mm port in the left lower abdomen. At this point identified the cecum, I retracted the cecum both medially and superiorly allowing me to expose the appendix. The appendix was noted to be very dilated and inflamed. The appendix was noted to be very adherent to the r ight lateral sidewall as well as the ileum. I was able to bluntly dissect the appendix from these adhesions. I then was able to locate the base of the appendix with the cecum. I created a window with the [place] dissector between the appendix itself and the mesoappendix. At this point, the patient slowly slid towards the left and off the bed. Luckily, myself and the 1st assistant dean of students were able to catch the patient. The airway was never compromised and the patient was stable from a hemodynamic and vital sign standpoint. We were able to position her back on the bed. We then re prepped and redraped the patient. Once back into the abdomen, I then transected the mesoappendix with a white vascular staple load. The Endo-MAUREEN was then reloaded with a blue staple load and I transected the base of the appendix. Once the specimen was completely detached, an endo-pouch was placed into the 12 mm port site and the specimen was removed through the endo-pouch. The appendiceal specimen will be sent to pathology for further review. I then copiously irrigated the right lower quadrant. Hemostasis was noted at both staple lines no other pathology was seen in this area. I then moved the camera to the suprapubic port to check our its port of entry. No iatrogenic injury or other pathology was noted in the upper abdomen. I then closed the 12 mm port site with a Tahir code and 0 Vicryl cintron ture under direct visualization. At this point, the abdomen was desufflated and all ports were removed. All port sites were closed with 4 Monocryl subcuticular suture. Dermabond was placed on all wounds. The patient tolerated the procedure well and was extubated in the operating room postop. She will be sent to the recovery room in stable condition. Estimated Blood Loss 10 Drains No Packing No Pathology Yes Complications No immediate complications Condition Stable Disposition PACU [facility] Billing Surgery - Charge Forward: Surgery Billing
--- OUTSIDE RECORDS SUMMARY | 2025-03-30 17:09 | XMS_ITS | Clinical Summary ---
Author Organization [facility] Address [address] [place] [address] Phone Care Team Providers Care Warehouse Director Name Role Phone Provider, None Primary Care Provider Unavailabl e Allergies Active Allergy Reactions Criticality Noted Date Comments Ciprofloxacin Other (see Comments) 10/08/2014 Empagliflozin Rash 11/12/2024 Recurrent infections Guaifenesin Hives,Other (see Comments) 10/08/2014 Hypertension Medications valACYclovir (VALTREX) 1 GM Tablet Take 500 mg by mouth daily. 05/29/2022 Active rizatriptan (MAXALT-[place] GUIDE) 10 MG TABLET DISPERSIBLE Take 10 mg [...] Description 12/08/2025 2:30 PM CDT Office Visit [address] [place] [address] Khai Fuentes MD [address] [place] [address] [place] [address] Health Maintenance Due Date [...] THINPREP TIS AND HPV MRNA E6/E7, [facility] [id number] Routine 11/12/2024 2:19 PM CDT Encounter for gynecological examination (general) (routine) with abnormal findings THIN PREP PAP SMEAR,EXT UPH,[id number] Routine 10/31/2023 12:00 AM CDT from Last [...] THINPREP TIS AND HPV MRNA E6/E7, [facility] [id number] (11/12/2024 2:19 PM CDT) 01028, REPORT STATUS, [facility] DNR 11/20/2024 9:50 AM CDT [facility] [place] [address], CLINICAL INFORMATION, [facility] SEE COMMENT 11/20/2024 9:50 AM CDT [facility] Comment: Intrauterine contraceptive device ABLATON 21811, LMP, [facility] SEE COMMENT 2024 9:50 AM CDT [facility] Comment:[id number], PREV. PAP, [facility] SEE COMMENT 11/20/2024 9:50 AM CDT [facility] Comment:[id number], PREV. BX, [facility] SEE COMMENT 11/20/2024 9:50 AM CDT [facility] Comment:[id number] 31226, SOURCE, [facility] SEE COMMENT 11/20/2024 9:50 AM CDT [facility] Comment:Vagina, Cervix, Endo cervix 03047, STATEMENT OF ADEQUACY, [facility] SEE COMMENT 11/20/2024 9:50 AM CDT [facility] Comment: Satisfactory for evaluation. Endocervical/transformation zone component present. 10390, GENERAL CATEGORIZATION, [facility] DNR 11/20/2024 9:50 AM CDT [facility] [place] 14386, INTERPRETATION/RES ULT, [facility] SEE COMMENT 11/20/2024 9:50 AM CDT [facility] Comment: Cytology Results: Negative for intraepithelial lesion or malignancy. 66408, INFECTION, [facility] DNR 11/20/2024 9:50 AM CDT [facility] [place] 20239, COMMENT, [facility] SEE COMMENT 11/20/2024 9:50 AM CDT [facility] Comment: This Pap test has been evaluated with the ThinPrep(R) Imaging System. 58102, ARTIFACTS CONSERVATOR, [facility] SEE COMMENT 11/20/2024 9:50 AM CDT [facility] Comment: ABC, CT(ASCP) CT Screening Location: [place] [address] [place] [address] CLIA: [id number] Slide preparation performed at: [facility], [address] [place] [address], [address] CLIA: [id number], REVIEW ARTIFACTS CONSERVATOR, MIRELLA SEE COMMENT 11/20/2024 9:50 AM CDT [facility] [place] Comment: BKA, CT(ASCP) CT Screening Location: [address] [place] [address] CLIA: [id number] Slide preparation performed at: [facility], [address] [place] [address], [address] CLIA: [id number], PATHOLOGIST, MIRELLA DNR 11/20/2024 9:50 AM CDT [facility] [place] [address], ALWAYS MESSAGE, MIRELLA SEE COMMENT 11/20/2024 9:50 AM CDT [facility] [place] Comment: EXPLANATORY NOTE: The Pap is a screening test for cervical cancer. It is not a diagnostic test and is subject to false negative and false positive results. It is most reliable when a satisfactory sample, regularly obtained, is submitted with relevant clinical findings and history, and when the Pap result is evaluated along with historic and current clinical information. 88945, HPV MRNA E6/E7, [facility] Not Detected Not Detected 11/20/2024 9:50 AM CDT [facility] [place] Comment: Methodology: Teasel Setter-Mediated Amplification This assay detects E6/E7 viral messenger RNA (mRNA) from 14 high-risk HPV types (16,18,31,33,35,39,45,51,52,56,58,59,66,68). Cervical sources are required for HPV testing. If a vaginal source from a patient who has had a total hysterectomy with removal of cervix was submitted, please contact the testing laboratory for alternative testing options. For additional information, please refer to http://education.Filmaka/faq/FIM792b4 (This link if provided for information/ educational purposes only.) Other Non-Phlebotomy Collection / Unknown 11/12/2024 2:19 PM CDT 11/12/2024 2:19 PM CDT Narrative [facility] - 11/20/2024 9:50 AM CDT Performing Organization Information: [place] [facility] [place] [address] [facility] [address] [place], [place] [address] [facility] Khai Fuentes MD LAB SEND OUTS Final Result [facility] [place] [address] [place] [address], [place] [phone] * THIN PREP PAP SMEAR,EXT UP,[id number] (10/31/2023 12:00 AM CDT) Historical Provider PATHOLOGY/CYTOLOGY ORDERA BLES Final Result from Last 3 Months or Most Recently Relevant to Health Maintenance Insurance [employer] SO Care Teams Warehouse Director Relationship Specialty Start Date End Date Provider, None [place] PCP - General 10/23/24
[2025-03-30] MEDS: oxyCODONE HCL (*CRX) 5 MG TAB IR PO (17:30)
== END 2025-03-30 18:07 | disposition home or self-care (01) ==
PROVIDERS: Visit Provider Surgery
PROC: 0DTJ4ZZ Resection of Appendix, Percutaneous Endoscopic Approach (ICD-10-PCS; CPT 44970; principal; 2025-03-30 15:30)
DX: K35.80 Unspecified acute appendicitis (principal); Z79.84 Long term (current) use of oral hypoglycemic drugs; Z98.890 Other specified postprocedural states; Z98.84 Bariatric surgery status
CPT/HCPCS: 44970; 88304; A9270; J1100; J2250; J2270; J2405; J2704; J7120